=== PATIENT | female | born 1970 | race Caucasian/White ===

== ENCOUNTER 2017-10-21 11:16 | Inpatient (IN) ==
--- NOTE | 2017-10-21 11:36 | Emergency Department Note ---
Disposition Clinical Impression: Suicidal ideation, Medical clearance for psychiatric admission Disposition: Admitted As Inpatient Condition: Undetermined Referrals: Callie Doss DO [Primary Care Provider] - Forms: ED Satisfaction Letter General Adult HPI - General Chief complaint: ED Psychiatric Symptoms Stated complaint: Depression Time Seen by Provider: 10/21/17 11:32 Source: patient Limitations: no limitations - History of Present Illness Pain Scale: 8 - Related Data Home Medications Medication Instructions Recorded Confirmed Furosemide [Lasix] 20 mg PO DAILY 01/14/16 01/14/16 HYDROcodone/Acet 7.5/325 mg [[place] 1 tab PO Q6HR 01/14/16 01/14/16 7.5-325 mg] Metoprolol [Lopressor] 12.5 mg PO DAILY 01/14/16 01/14/16 Omeprazole [PriLOSEC] 20 mg PO DAILY 01/14/16 01/14/16 Potassium Chloride [K-Tab ER] 20 meq PO DAILY 01/14/16 01/14/16 Previous Rx's Medication Instructions Recorded Oseltamivir [Tamiflu] 75 mg PO BID #10 capsule 08/15/16 Promethazine [Phenergan] 25 mg PO Q6HR PRN #16 tablet 08/15/16 amLODIPine [Norvasc] 5 mg PO DAILY #10 tablet 10/29/16 Allergies Allergy/AdvReac Type Severity Reaction Status Date / Time No Known Allergies Allergy Verified 10/28/16 22:38 Past Medical History - Past Medical History Medical history: Reports: hypertension, other Surgical history: Reports: appendectomy, cholecystectomy, hysterectomy Psychiatric history: Reports: anxiety, depression 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 - Social History Smoking Status: Never smoker Smokeless Tobacco Status: No Alcohol use: Reports: occasionally Drug use: Reports: none Physical Exam - General Limitations: no limitations General appearance: alert, in no apparent distress Course Vital Signs Temperature 97.9 F 10/21/17 11:25 Pulse Rate 66 10/21/17 11:25 Respiratory Rate 18 10/21/17 11:25 Blood Pressure 155/97 10/21/17 11:25 O2 Sat by Pulse Oximetry 95 10/21/17 11:25 Temperature 97.9 F 10/21/17 11:25 Pulse Rate 66 10/21/17 11:25 Respiratory Rate 18 10/21/17 11:25 Blood Pressure 155/97 10/21/17 11:25 O2 Sat by Pulse Oximetry 95 10/21/17 11:25 Oxygen Delivery Oxygen Delivery Room Air Medical Decision Making - Lab Data Result diagrams: 10/21/17 12:15 10/21/17 13:35 Lab Results 10/21/17 10/21/17 10/21/17 Range/Units 11:23 11:23 11:23 WBC (4.3-11.1) K/mcL RBC (3.82-4.97) M/mcL Hgb (11.5-15.4) g/dL Hct (35.3-44.9) % MCV (83.0-100.0) fL MCH (28.0-33.3) pg MCHC (31.6-35.5) g/dL RDW (11.5-14.5) % Plt Count (140-400) K/mcL MPV (9.4-12.4) fL Immature Gran % (0-4) % Seg Neutrophils % % Lymphocytes % % Monocytes % % Eosinophils % % Basophils % % Neutrophils # (1.6-8.9) K/mcL Lymphocytes # (0.6-4.6) K/mcL Monocytes # (0.0-1.3) K/mcL Eosinophils # (0.0-0.6) K/mcL Basophils # (0.0-0.2) K/mcL Sodium Potassium Chloride Carbon Dioxide BUN Creatinine Est GFR ( Amer) Est GFR (Non-Af Amer) BUN/Creatinine Ratio Glucose Calculated Osmolality Calcium TSH (0.340-5.600) mcIU/mL Urine Color Yellow (Yellow) Urine Clarity Clear (Clear) Urine pH 7.0 (5.0-8.0) pH Units Ur Specific [place] 1.015 (1.010-1.025) Urine Protein Negative (Neg-Trace) mg/dL Urine Glucose (UA) Normal (Normal) mg/dL Urine Ketones Negative (Negative) mg/dL Urine Blood Negative (Negative) Urine Nitrite Negative (Negative) Urine Bilirubin Negative (Negative) Urine Urobilinogen Normal (Normal) mg/dL Ur Leukocyte Esterase Negative (Negative) Urine Test Negative (Negative) Salicylates Urine Opiates Screen Negative (Vddbyy=737) ng/mL Acetaminophen Ur Barbiturates Screen Negative (Oqdoox=857) ng/mL Ur Phencyclidine Scrn Negative (Cutoff=25) ng/mL Ur Amphetamines Screen Negative (Ycozdy=5738) ng/mL U Benzodiazepines Scrn Negative (Slfqxj=349) ng/mL Urine Cocaine Screen Negative (Cutoff= 300) ng/mL U Marijuana (THC) Screen Negative (Cutoff = 50) ng/mL Ethyl Alcohol Specimen Rejected 10/21/17 10/21/17 10/21/17 Range/Units 12:15 12:15 12:15 WBC 10.9 (4.3-11.1) K/mcL RBC 4.68 (3.82-4.97) M/mcL Hgb 13.7 (11.5-15.4) g/dL Hct 41.4 (35.3-44.9) % MCV 88.5 (83.0-100.0) fL MCH 29.3 (28.0-33.3) pg MCHC 33.1 (31.6-35.5) g/dL RDW 12.7 (11.5-14.5) % Plt Count 372 (140-400) K/mcL MPV 10.7 (9.4-12.4) fL Immature Gran % 0.3 (0-4) % Seg Neutrophils % 62.9 % Lymphocytes % 28.3 % Monocytes % 5.4 % Eosinophils % 2.5 % Basophils % 0.6 % Neutrophils # 6.8 (1.6-8.9) K/mcL Lymphocytes # 3.1 (0.6-4.6) K/mcL Monocytes # 0.6 (0.0-1.3) K/mcL Eosinophils # 0.3 (0.0-0.6) K/mcL Basophils # 0.1 (0.0-0.2) K/mcL Sodium Cancelled Potassium Cancelled Chloride Cancelled Carbon Dioxide Cancelled BUN Cancelled Creatinine Cancelled Est GFR ( Amer) Cancelled Est GFR (Non-Af Amer) Cancelled BUN/Creatinine Ratio Cancelled Glucose Cancelled Calculated Osmolality Cancelled Calcium Cancelled TSH 1.191 (0.340-5.600) mcIU/mL Urine Color (Yellow) Urine Clarity (Clear) Urine pH (5.0-8.0) pH Units Ur Specific [place] (1.010-1.025) Urine Protein (Neg-Trace) mg/dL Urine Glucose (UA) (Normal) mg/dL Urine Ketones (Negative) mg/dL Urine Blood (Negative) Urine Nitrite (Negative) Urine Bilirubin (Negative) Urine Urobilinogen (Normal) mg/dL Ur Leukocyte Esterase (Negative) Urine Test (Negative) Salicylates Cancelled Urine Opiates Screen (Qxwwta=853) ng/mL Acetaminophen Cancelled Ur Barbiturates Screen (Aastkb=319) ng/mL Ur Phencyclidine Scrn (Cutoff=25) ng/mL Ur Amphetamines Screen (Mlbami=0688) ng/mL U Benzodiazepines Scrn (Bvpaiv=823) ng/mL Urine Cocaine Screen (Cutoff= 300) ng/mL U Marijuana (THC) Screen (Cutoff = 50) ng/mL Ethyl Alcohol Cancelled Specimen Rejected Hemolyzed 10/21/17 Range/Units 13:35 WBC (4.3-11.1) K/mcL RBC (3.82-4.97) M/mcL Hgb (11.5-15.4) g/dL Hct (35.3-44.9) % MCV (83.0-100.0) fL MCH (28.0-33.3) pg MCHC (31.6-35.5) g/dL RDW (11.5-14.5) % Plt Count (140-400) K/mcL MPV (9.4-12.4) fL Immature Gran % (0-4) % Seg Neutrophils % % Lymphocytes % % Monocytes % % Eosinophils % % Basophils % % Neutrophils # (1.6-8.9) K/mcL Lymphocytes # (0.6-4.6) K/mcL Monocytes # (0.0-1.3) K/mcL Eosinophils # (0.0-0.6) K/mcL Basophils # (0.0-0.2) K/mcL Sodium 139 Potassium 3.5 Chloride 104 Carbon Dioxide 26 BUN 14 Creatinine 0.76 Est GFR ( Amer) > 60 Est GFR (Non-Af Amer) > 60 BUN/Creatinine Ratio 18 Glucose 164 H Calculated Osmolality 292 Calcium 8.8 TSH (0.340-5.600) mcIU/mL Urine Color (Yellow) Urine Clarity (Clear) Urine pH (5.0-8.0) pH Units Ur Specific [place] (1.010-1.025) Urine Protein (Neg-Trace) mg/dL Urine Glucose (UA) (Normal) mg/dL Urine Ketones (Negative) mg/dL Urine Blood (Negative) Urine Nitrite (Negative) Urine Bilirubin (Negative) Urine Urobilinogen (Normal) mg/dL Ur Leukocyte Esterase (Negative) Urine Test (Negative) Salicylates 2.8 L Urine Opiates Screen (Robrpn=247) ng/mL Acetaminophen < 10 L Ur Barbiturates Screen (Qaijct=991) ng/mL Ur Phencyclidine Scrn (Cutoff=25) ng/mL Ur Amphetamines Screen (Ctcnji=4285) ng/mL U Benzodiazepines Scrn (Jwaeet=335) ng/mL Urine Cocaine Screen (Cutoff= 300) ng/mL U Marijuana (THC) Screen (Cutoff = 50) ng/mL Ethyl Alcohol < 10 Specimen Rejected Critical Care Time Critical Care Time: No Attestation Statement - Attestation Attestation: I examined this patient and my medical decision-making was reviewed with the Resident Physician. I agree with the documented findings, disposition and treatment plan as described except to the extent set forth below. Patient to ED with suicidal thoughts planning to hang herself. History of depression. Exam nonfocal. Plan. Medical clearance and evaluation by 1A. Admitted to psychiatry.
[2017-10-21 11:46] LABS: Bilirubin,Urine Negative (Negative); Blood,Urine Negative (Negative); Clarity,Urine Clear (Clear); Color,Urine Yellow (Yellow); Glucose,Urine (UA) Normal (Normal); Ketones,Urine Negative (Negative); Leukocyte Esterase,Urine Negative (Negative); Nitrite,Urine Negative (Negative); Protein,Urine Negative (Neg-Trace); Specific Gravity,Urine 1.015 (1.010-1.025); Urobilinogen,Urine Normal (Normal)
--- NOTE | 2017-10-21 12:17 | Emergency Department Note ---
Disposition Clinical Impression: Suicidal ideation, Medical clearance for psychiatric admission Disposition: Admitted As Inpatient Condition: Undetermined Referrals: Callie Doss DO [Primary Care Provider] - Forms: ED Satisfaction Letter Time of Disposition: 16:03 Psych HPI - General Chief Complaint: ED Psychiatric Symptoms Stated Complaint: Depression Time Seen by Provider: 10/21/17 11:32 Source: patient, EMS Mode of arrival: EMS Limitations: no limitations Nursing Notes Reviewed: Yes Vital Signs Reviewed: Yes - History of Present Illness HPI Narrative: 47-year-old female arrives to the emergency department after the patient was noted to be suicidal. The patient called her PCP as well as integrative services to inform them that she was feeling suicidal and wanted to hang herself. The patient denies any previous suicidal attempts. She denies any other complaints at this time other than a small amount of swelling in the right side of her neck. The patient states this is tender but she has a PCP that she sees on a regular basis. Patient denies any other complaints and is resting comfortably room but is very tearful and anxious. She has a plan but did not attempt to hurt herself today. - Related Data Home Medications Medication Instructions Recorded Confirmed Furosemide [Lasix] 20 mg PO DAILY 01/14/16 01/14/16 HYDROcodone/Acet 7.5/325 mg [[place] 1 tab PO Q6HR 01/14/16 01/14/16 7.5-325 mg] Metoprolol [Lopressor] 12.5 mg PO DAILY 01/14/16 01/14/16 Omeprazole [PriLOSEC] 20 mg PO DAILY 01/14/16 01/14/16 Potassium Chloride [K-Tab ER] 20 meq PO DAILY 01/14/16 01/14/16 Previous Rx's Medication Instructions Recorded Oseltamivir [Tamiflu] 75 mg PO BID #10 capsule 08/15/16 Promethazine [Phenergan] 25 mg PO Q6HR PRN #16 tablet 08/15/16 amLODIPine [Norvasc] 5 mg PO DAILY #10 tablet 10/29/16 Allergies Allergy/AdvReac Type Severity Reaction Status Date / Time No Known Allergies Allergy Verified 10/28/16 22:38 All systems ED: reviewed and negative except as stated. Constitutional: Denies: fever, chills, weakness ENT ED: Reports: throat pain. Denies: congestion Cardiovascular: Denies: chest pain Respiratory: Denies: dyspnea Gastrointestinal: Denies: abdominal pain, nausea, vomiting, diarrhea Genitourinary: Denies: urgency, dysuria Musculoskeletal: Denies: back pain, neck pain Integumentary: Denies: rash Neurological: Denies: headache, weakness Psychiatric: Reports: anxiety, depression, suicidal thoughts. Denies: homicidal thoughts, auditory hallucinations, visual hallucinations Past Medical History - Past Medical History Attestation: Yes The following information was validated with the patient. 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 - Social History Smoking Status: Never smoker Smokeless Tobacco Status: No Alcohol use: Reports: occasionally Drug use: Reports: none Physical Exam - General Limitations: no limitations General appearance: alert, in no apparent distress - Head Head exam: atraumatic, normocephalic, normal inspection - Eye Eye exam: Present: normal appearance, PERRL, EOMI - ENT ENT exam: normal exam, normal oropharynx, mucous membranes moist - Neck Neck exam: Present: normal inspection, full ROM, trachea midline, tenderness ( With thyroid nodule on right neck.) - Chest Chest inspection: Present: normal inspection, symmetric chest wall rise - Respiratory Respiratory exam: Present: normal lung sounds bilaterally - Cardiovascular Cardiovascular exam: Present: regular rate, normal rhythm, normal heart sounds - Abdominal Exam Abdominal exam: Present: soft, Non-Tender. Absent: tenderness, distention, guarding, rebound, rigidity - Extremities Exam Extremities exam: Present: normal inspection, full ROM. Absent: tenderness, pedal edema - Back Exam Back exam: Present: normal inspection, full ROM. Absent: tenderness - Neurological Exam Neurological exam: Present: alert, oriented X3, CN II-XII intact - Expanded Neurological Exam Patient oriented to: Present: person, place, time Coma Scale Eye Opening: Spontaneous Coma Scale Motor Response: Obeys Commands Coma Scale Verbal Response: Oriented Coma Scale Total: 15 - Psychiatric Psychiatric exam: Present: depressed, anxious, suicidal ideation. Absent: homicidal ideation - Skin Skin exam: Present: warm, dry, intact, normal color Course - Reevaluation(s) Reevaluation #1: 1A was consulted called at this time. Time: 15:09 Vital Signs Temperature 97.9 F 10/21/17 11:25 Pulse Rate 66 10/21/17 11:25 Respiratory Rate 18 10/21/17 11:25 Blood Pressure 155/97 10/21/17 11:25 O2 Sat by Pulse Oximetry 95 10/21/17 11:25 Temperature 97.9 F 10/21/17 11:25 Pulse Rate 66 10/21/17 11:25 Respiratory Rate 18 10/21/17 11:25 Blood Pressure 155/97 10/21/17 11:25 O2 Sat by Pulse Oximetry 95 10/21/17 11:25 Oxygen Delivery Oxygen Delivery Room Air Psych - MDM Narrative Medical decision making narrative: After one a evaluated patient, they feel as though the need to admit the patient to the psychiatric unit for further workup and care. Accepted by Dr. Vences. - Lab Data Result diagrams: 10/21/17 12:15 10/21/17 13:35 Lab Results 10/21/17 10/21/17 10/21/17 Range/Units 11:23 11:23 11:23 WBC (4.3-11.1) K/mcL RBC (3.82-4.97) M/mcL Hgb (11.5-15.4) g/dL Hct (35.3-44.9) % MCV (83.0-100.0) fL MCH (28.0-33.3) pg MCHC (31.6-35.5) g/dL RDW (11.5-14.5) % Plt Count (140-400) K/mcL MPV (9.4-12.4) fL Immature Gran % (0-4) % Seg Neutrophils % % Lymphocytes % % Monocytes % % Eosinophils % % Basophils % % Neutrophils # (1.6-8.9) K/mcL Lymphocytes # (0.6-4.6) K/mcL Monocytes # (0.0-1.3) K/mcL Eosinophils # (0.0-0.6) K/mcL Basophils # (0.0-0.2) K/mcL Sodium Potassium Chloride Carbon Dioxide BUN Creatinine Est GFR ( Amer) Est GFR (Non-Af Amer) BUN/Creatinine Ratio Glucose Calculated Osmolality Calcium TSH (0.340-5.600) mcIU/mL Urine Color Yellow (Yellow) Urine Clarity Clear (Clear) Urine pH 7.0 (5.0-8.0) pH Units Ur Specific [place] 1.015 (1.010-1.025) Urine Protein Negative (Neg-Trace) mg/dL Urine Glucose (UA) Normal (Normal) mg/dL Urine Ketones Negative (Negative) mg/dL Urine Blood Negative (Negative) Urine Nitrite Negative (Negative) Urine Bilirubin Negative (Negative) Urine Urobilinogen Normal (Normal) mg/dL Ur Leukocyte Esterase Negative (Negative) Urine Test Negative (Negative) Salicylates Urine Opiates Screen Negative (Btiyed=901) ng/mL Acetaminophen Ur Barbiturates Screen Negative (Ipofwm=070) ng/mL Ur Phencyclidine Scrn Negative (Cutoff=25) ng/mL Ur Amphetamines Screen Negative (Iljegk=6120) ng/mL U Benzodiazepines Scrn Negative (Jjldve=082) ng/mL Urine Cocaine Screen Negative (Cutoff= 300) ng/mL U Marijuana (THC) Screen Negative (Cutoff = 50) ng/mL Ethyl Alcohol Specimen Rejected 10/21/17 10/21/17 10/21/17 Range/Units 12:15 12:15 12:15 WBC 10.9 (4.3-11.1) K/mcL RBC 4.68 (3.82-4.97) M/mcL Hgb 13.7 (11.5-15.4) g/dL Hct 41.4 (35.3-44.9) % MCV 88.5 (83.0-100.0) fL MCH 29.3 (28.0-33.3) pg MCHC 33.1 (31.6-35.5) g/dL RDW 12.7 (11.5-14.5) % Plt Count 372 (140-400) K/mcL MPV 10.7 (9.4-12.4) fL Immature Gran % 0.3 (0-4) % Seg Neutrophils % 62.9 % Lymphocytes % 28.3 % Monocytes % 5.4 % Eosinophils % 2.5 % Basophils % 0.6 % Neutrophils # 6.8 (1.6-8.9) K/mcL Lymphocytes # 3.1 (0.6-4.6) K/mcL Monocytes # 0.6 (0.0-1.3) K/mcL Eosinophils # 0.3 (0.0-0.6) K/mcL Basophils # 0.1 (0.0-0.2) K/mcL Sodium Cancelled Potassium Cancelled Chloride Cancelled Carbon Dioxide Cancelled BUN Cancelled Creatinine Cancelled Est GFR ( Amer) Cancelled Est GFR (Non-Af Amer) Cancelled BUN/Creatinine Ratio Cancelled Glucose Cancelled Calculated Osmolality Cancelled Calcium Cancelled TSH 1.191 (0.340-5.600) mcIU/mL Urine Color (Yellow) Urine Clarity (Clear) Urine pH (5.0-8.0) pH Units Ur Specific [place] (1.010-1.025) Urine Protein (Neg-Trace) mg/dL Urine Glucose (UA) (Normal) mg/dL Urine Ketones (Negative) mg/dL Urine Blood (Negative) Urine Nitrite (Negative) Urine Bilirubin (Negative) Urine Urobilinogen (Normal) mg/dL Ur Leukocyte Esterase (Negative) Urine Test (Negative) Salicylates Cancelled Urine Opiates Screen (Mbznkl=976) ng/mL Acetaminophen Cancelled Ur Barbiturates Screen (Zwxvvt=087) ng/mL Ur Phencyclidine Scrn (Cutoff=25) ng/mL Ur Amphetamines Screen (Npkmpm=6442) ng/mL U Benzodiazepines Scrn (Tichos=157) ng/mL Urine Cocaine Screen (Cutoff= 300) ng/mL U Marijuana (THC) Screen (Cutoff = 50) ng/mL Ethyl Alcohol Cancelled Specimen Rejected Hemolyzed 10/21/17 Range/Units 13:35 WBC (4.3-11.1) K/mcL RBC (3.82-4.97) M/mcL Hgb (11.5-15.4) g/dL Hct (35.3-44.9) % MCV (83.0-100.0) fL MCH (28.0-33.3) pg MCHC (31.6-35.5) g/dL RDW (11.5-14.5) % Plt Count (140-400) K/mcL MPV (9.4-12.4) fL Immature Gran % (0-4) % Seg Neutrophils % % Lymphocytes % % Monocytes % % Eosinophils % % Basophils % % Neutrophils # (1.6-8.9) K/mcL Lymphocytes # (0.6-4.6) K/mcL Monocytes # (0.0-1.3) K/mcL Eosinophils # (0.0-0.6) K/mcL Basophils # (0.0-0.2) K/mcL Sodium 139 Potassium 3.5 Chloride 104 Carbon Dioxide 26 BUN 14 Creatinine 0.76 Est GFR ( Amer) > 60 Est GFR (Non-Af Amer) > 60 BUN/Creatinine Ratio 18 Glucose 164 H Calculated Osmolality 292 Calcium 8.8 TSH (0.340-5.600) mcIU/mL Urine Color (Yellow) Urine Clarity (Clear) Urine pH (5.0-8.0) pH Units Ur Specific [place] (1.010-1.025) Urine Protein (Neg-Trace) mg/dL Urine Glucose (UA) (Normal) mg/dL Urine Ketones (Negative) mg/dL Urine Blood (Negative) Urine Nitrite (Negative) Urine Bilirubin (Negative) Urine Urobilinogen (Normal) mg/dL Ur Leukocyte Esterase (Negative) Urine Test (Negative) Salicylates 2.8 L Urine Opiates Screen (Elwexj=191) ng/mL Acetaminophen < 10 L Ur Barbiturates Screen (Jhxygb=835) ng/mL Ur Phencyclidine Scrn (Cutoff=25) ng/mL Ur Amphetamines Screen (Hocrdg=7811) ng/mL U Benzodiazepines Scrn (Qivxgn=529) ng/mL Urine Cocaine Screen (Cutoff= 300) ng/mL U Marijuana (THC) Screen (Cutoff = 50) ng/mL Ethyl Alcohol < 10 Specimen Rejected Psychiatric Medical Clearance - Medical Clearance Checklist Medical History: Chest pain (Acute) HTN (hypertension) (Chronic) GERD (gastroesophageal reflux disease) (Chronic) Hyperglycemia (Acute) DVT prophylaxis (Acute) Anxiety attack (Inactive) Bacterial conjunctivitis (Inactive) Chest pain of unknown etiology (Inactive) Edema of lower extremity (Inactive) Hypertensive urgency (Inactive) Influenza (Inactive) Migraine (Inactive) No Social History Section defined Current Vitals: Last Vital Signs Temp 97.9 F 10/21/17 11:25 Pulse 66 10/21/17 11:25 Resp 18 10/21/17 11:25 BP 155/97 10/21/17 11:25 Pulse Ox 95 10/21/17 11:25 Psychiatric Lab Panel: Drug Levels and Toxicity 10/21/17 10/21/17 10/21/17 11:23 12:15 13:35 Urine Opiates Screen Negative Acetaminophen Cancelled < 10 L Ur Barbiturates Screen Negative Ur Phencyclidine Scrn Negative Ur Amphetamines Screen Negative U Benzodiazepines Scrn Negative Urine Cocaine Screen Negative U Marijuana (THC) Screen Negative Ethyl Alcohol Cancelled < 10 Abnormal Labs: Abnormal lab results Glucose 164 mg/dL (70-105) H 10/21/17 13:35 Salicylates 2.8 mg/dL (15.0-30.0) L 10/21/17 13:35 Acetaminophen < 10 mcg/mL (10-20) L 10/21/17 13:35 Statement of Medical Clearance: I have evaluated the patient, reviewed diagnostic information, and certify that the patient's medical condition is sufficiently stable that transfer to the psychiatric unit does not pose a significant risk of deterioration.
[2017-10-21 12:30] LABS: Basophils # 0.1 K/mcL (0.0-0.2); Basophils % 0.6 %; Eosinophils # 0.3 K/mcL (0.0-0.6); Eosinophils % 2.5 %; Hematocrit 41.4 % (35.3-44.9); Hemoglobin 13.7 g/dL (11.5-15.4); Immature Granulocytes % 0.3 % (0-4); Lymphocytes # 3.1 K/mcL (0.6-4.6); Lymphocytes % 28.3 %; Mean Corpuscular HGB Conc 33.1 g/dL (31.6-35.5); Mean Corpuscular Hemoglobin 29.3 pg (28.0-33.3); Mean Corpuscular Volume 88.5 fL (83.0-100.0); Mean Platelet Volume 10.7 fL (9.4-12.4); Monocytes # 0.6 K/mcL (0.0-1.3); Monocytes % 5.4 %; Neutrophils # 6.8 K/mcL (1.6-8.9); Platelet Count 372 K/mcL (140-400); Red Blood Count 4.68 M/mcL (3.82-4.97); Red Cell Distribution Width 12.7 % (11.5-14.5); Segmented Neutrophils % 62.9 %
[2017-10-21 13:41] LABS: Amphetamine Screen,Urine Negative ng/mL (Cutoff=1000); Barbiturate Screen,Urine Negative ng/mL (Cutoff=200); Benzodiazepines Screen,Urine Negative ng/mL (Cutoff=200); Cannabinoid Screen,Urine Negative ng/mL (Cutoff = 50); Cocaine Screen,Urine Negative ng/mL (Cutoff= 300); Opiate Screen,Urine Negative ng/mL (Cutoff=300); Phencyclidine Screen,Urine Negative ng/mL (Cutoff=25)
[2017-10-21 14:16] LABS: BUN/Creatinine Ratio 18 (6-26); Blood Urea Nitrogen 14 mg/dL (6-20); Calcium 8.8 mg/dL (8.6-10.3); Carbon Dioxide 26 mEq/L (23-29); Chloride 104 mEq/L (98-107); Glucose 164 mg/dL (70-105); Osmolality,Calculated 292 (280-300); Potassium 3.5 mEq/L (3.5-5.1); Sodium 139 mEq/L (136-145); eGFR For African Americans > 60 (> 60); eGFR For Non-African Americans > 60 (> 60)
[2017-10-21 14:40] LABS: Acetaminophen < 10 mcg/mL (10-20); Ethanol < 10 mg/dL (Less than 10); Salicylate 2.8 mg/dL (15.0-30.0)
[2017-10-21] MEDS ORDERED: *HR* LORazepam 1 MG TABLET PO PRN (16:40)
[2017-10-21] MEDS ORDERED: Haloperidol Lactate 5 MG/ML VIAL IM PRN (16:40)
[2017-10-21] MEDS ORDERED: Mag Hydrox/Al Hydrox/Simeth 30 ML UDC PO PRN (16:40)
[2017-10-21] MEDS ORDERED: *HR* LORazepam 2 MG/ML VIAL IM PRN (16:40)
[2017-10-21] MEDS: SUMAtriptan succinate 50 MG TABLET PO PRN (19:14)
[2017-10-21] MEDS: traZODone 50 MG TABLET PO PRN (22:06)
[2017-10-21] MEDS: hydrOXYzine pamoate 25 MG CAPSULE PO PRN (22:06)
[2017-10-21] MEDS ORDERED: traZODone 50 MG TABLET PO ONE (23:50)
[2017-10-22] MEDS: Ondansetron ODT 4 MG TAB.RAPDIS PO SCH (08:37)
[2017-10-22] MEDS: SUMAtriptan succinate 50 MG TABLET PO PRN (10:39)
[2017-10-22] MEDS: Acetaminophen 325 MG TABLET PO PRN (14:16)
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
[2017-10-22] MEDS: hydrOXYzine pamoate 25 MG CAPSULE PO PRN (20:54)
[2017-10-22] MEDS: traZODone 50 MG TABLET PO PRN (22:13)
[2017-10-23] MEDS ORDERED: Venlafaxine XR (24 HR) 75 MG CAP.ER.24H PO SCH (09:00)
[2017-10-23] MEDS: Ondansetron ODT 4 MG TAB.RAPDIS PO SCH (09:04)
[2017-10-23] MEDS: Acetaminophen 325 MG TABLET PO PRN ×2 (09:32→21:18)
--- NOTE | 2017-10-23 14:47 | Psychiatry Progress Note ---
Date of Encounter: 10/23/17 Time of Encounter: 14:30 Subjective Interval history: The patient has continued to have depressive symptoms. She has lack of reactivity she has psychomotor retardation she has had a headache that is continued on. She was seen reading in bed but has reported difficulty with concentration is unable to remember sheets. The patient has difficulty with recurring guilt thoughts come through her head she is denying visual or auditory hallucinations she is denying first rank schneiderian symptoms nonetheless she feels okay about the past. She continues to have recurrent suicidal thoughts. There are no plans to kill herself on the unit but previously she has considered hanging. Patient has pain from [place] on the left side of the head. She has not respond to sumatriptan The patient has ongoing nausea. She is trying Zofran but usually takes at home every day. She also takes omeprazole 3 times a day after meals to help with her eating. The patient has not responded to sumatriptan and her primary care physician is 4. The patient would like to continue on the venlafaxine she has been able to tolerate it. I told her we can increase to 150 mg per day. The patient notes no improvement whatsoever in this interval. She still has difficulty with thinking and concentration. The patient has had low blood pressure and affect does not appear to need antihypertensive so the 3 antihypertensives been discontinued. The patient has a limited range of motion of the right upper extremity. This resulted from a fall from a horse where she broke both arms Review of Systems Musculoskeletal: Reports: joint pain Neurological: Reports: headache, memory loss Psychiatric: Reports: depression, abnormal sleep pattern, suicidal ideation, anhedonia, panic attacks Results - Vital Signs Vital Signs: Temp Pulse Resp BP Pulse Ox 98.6 F 75 16 88/67 96 10/23/17 08:58 10/23/17 08:58 10/23/17 08:58 10/23/17 08:58 10/21/17 19:47 Assessment and Plan (1) Suicidal ideation Current visit: Yes Status: Acute Plan: Continue hospitalization, Encourage participation in unit milieu, Secure weapons Risks, benefits, side effects, alternatives discussed w/pt: Yes Patient agreeable to treatment: Yes (2) Major depressive disorder, recurrent severe without psychotic features Current visit: Yes Status: Acute Plan: Continue hospitalization, Close observation, Encourage participation in unit milieu, Monitor sleep Risks, benefits, side effects, alternatives discussed w/pt: Yes Patient agreeable to treatment: Yes (3) Suicidal behavior without attempted self-injury Current visit: Yes Status: Acute Plan: Continue hospitalization, Group Therapy Risks, benefits, side effects, alternatives discussed w/pt: Yes Patient agreeable to treatment: Yes (4) HTN (hypertension) Current visit: No Status: Resolved Plan: Continue hospitalization Risks, benefits, side effects, alternatives discussed w/pt: Yes Patient agreeable to treatment: Yes Qualifiers: Hypertension type: essential hypertension Qualified Code(s): I10 - Essential (primary) hypertension Consult Discharge Plan - Plan Referrals: NONE,PCP [Primary Care Provider] - Psychiatry Exam - Constitutional Vitals: Temp Pulse Resp BP Pulse Ox 98.6 F 75 16 88/67 96 10/23/17 08:58 10/23/17 08:58 10/23/17 08:58 10/23/17 08:58 10/21/17 19:47 General appearance: age & developmentally appropriate, unkempt - Musculoskeletal Gait: slow Station: slouched Strength & Tone: mild weakness - Psychiatric Patient Orientation: Yes Person, Yes Time, Yes Place, Yes Circumstance Level of alertness: Alert Mood Description: Depressed Affect description: constricted, dysphoric Speech Volume: Normal Speech pattern: normal rate, limited Language & Vocabulary: consistent with education Thought Process: Intact, Logical Thought Content: Yes Suicidal ideation, Yes Preoccupation, Yes Guilt Perceptual Disturbances: No Auditory hallucinations, No Visual hallucinations Attention Span Ability: Capable of Sustained Attention Memory Description: Grossly Intact Patient Reliability: Reliable Historian Fund of knowledge: Yes average Intelligence Estimate: Average Judgment: Limited Insight: Minimal
[2017-10-23] MEDS: Acetaminophen/Butalbital/CaffeineTABLET PO PRN (18:08)
[2017-10-23] MEDS: traZODone 50 MG TABLET PO PRN (21:18)
[2017-10-23] MEDS: hydrOXYzine pamoate 25 MG CAPSULE PO PRN (21:18)
[2017-10-23] MEDS: Ondansetron ODT 4 MG TAB.RAPDIS SL PRN (21:19)
[2017-10-24] MEDS: SUMAtriptan succinate 50 MG TABLET PO PRN (09:22)
[2017-10-24] MEDS: Venlafaxine XR (24 HR) 150 MG CAP.ER.24H PO SCH (09:23)
[2017-10-24] MEDS: MOM Conc 10 ML UD.LIQ PO PRN (09:54)
[2017-10-24] MEDS: Acetaminophen 325 MG TABLET PO PRN (10:50)
[2017-10-24] MEDS: hydrOXYzine pamoate 25 MG CAPSULE PO PRN (13:29)
--- NOTE | 2017-10-24 14:28 | Psychiatry Progress Note ---
Date of Encounter: 10/24/17 Time of Encounter: 14:00 Subjective Interval history: Patient seen and discussed by a multidisciplinary treatment team. There were no reported behavioral issues overnight. BP noted to be trending up. Patient was calm, cooperative and well related. She is showing some improvement in her symptoms but remains isolative with suboptimal selfcare. She is more engaging with staff and has been was seen iin group session. She is still endorsing depressive symptoms with passive suicidal thoughts but is a little more hopeful. Patient is compliant with her medications and denied any noted side effects. On review of symptoms, she denied other mood/psychotic symptoms including AH/VH/HI/. She reported worsening anxiety which could be due her propranol being held. This will be restarted once BP remains consistently normal. Review of Systems Constitutional: Denies: fever, chills, weakness, weight change Eyes: Denies: eye pain, vision change Ears, Nose, Throat: Denies: ear pain, throat pain, dental pain, hearing loss, congestion Cardiovascular: Denies: chest pain, palpitations, dyspnea on exertion Respiratory: Denies: cough, dyspnea, wheezes Gastrointestinal: Denies: abdominal pain, nausea, vomiting, diarrhea, constipation Musculoskeletal: Denies: joint swelling, joint pain Neurological: Denies: headache, weakness, numbness, memory loss Psychiatric: Reports: depression, abnormal sleep pattern, suicidal ideation, anhedonia, panic attacks Results - Vital Signs Vital Signs: Temp Pulse Resp BP Pulse Ox 98 F 77 16 106/68 96 10/24/17 09:00 10/24/17 09:00 10/24/17 09:00 10/24/17 09:00 10/21/17 19:47 Assessment and Plan (1) Suicidal ideation Current visit: Yes Status: Acute Risks, benefits, side effects, alternatives discussed w/pt: Yes Patient agreeable to treatment: Yes (2) Major depressive disorder, recurrent severe without psychotic features Current visit: Yes Status: Acute Risks, benefits, side effects, alternatives discussed w/pt: Yes Patient agreeable to treatment: Yes Consult Discharge Plan - Plan Referrals: NONE,PCP [Primary Care Provider] - Psychiatry Exam - Constitutional Vitals: Temp Pulse Resp BP Pulse Ox 98 F 77 16 106/68 96 10/24/17 09:00 10/24/17 09:00 10/24/17 09:00 10/24/17 09:00 10/21/17 19:47 General appearance: age & developmentally appropriate - Musculoskeletal Gait: normal - Psychiatric Patient Orientation: Yes Person, Yes Place, Yes Circumstance Level of alertness: Alert Behavior: cooperative, anxious Psychomotor activity: Normal Eye Contact: Maintains Eye Contact Mood Description: Depressed Affect description: congruent with mood Speech Volume: Soft/Quiet Speech pattern: normal rate, normal rhythm, normal tone Language & Vocabulary: consistent with education Thought Process: Logical, Goal Oriented Thought Content: Yes Suicidal ideation Perceptual Disturbances: No Auditory hallucinations, No Visual hallucinations Attention Span Ability: Capable of Focused Attention Memory Description: Grossly Intact Patient Reliability: Reliable Historian
[2017-10-25] MEDS: Acetaminophen 325 MG TABLET PO PRN (00:06)
[2017-10-25] MEDS: traZODone 50 MG TABLET PO PRN ×2 (01:18→21:13)
[2017-10-25] MEDS: Acetaminophen/Butalbital/CaffeineTABLET PO PRN ×2 (01:25→21:13)
[2017-10-25] MEDS: MOM Conc 10 ML UD.LIQ PO PRN (01:25)
[2017-10-25] MEDS: Venlafaxine XR (24 HR) 150 MG CAP.ER.24H PO SCH (09:17)
--- NOTE | 2017-10-25 11:26 | Psychiatry Progress Note ---
Date of Encounter: 10/25/17 Time of Encounter: 10:59 Subjective Interval history: Patient seen and discussed by a multidisciplinary treatment team. There were no reported behavioral issues overnight. Patient was calm, cooperative and well related. She reported feeling OK and ready to be discharge. Patient remains isolated with severe psychomotor retardation and blunt affect. Patient became tearful when talking about her boyfriend breaking up with her a week prior to her admission. She stated she wants to be at peace like the mother who in March for all the pain to go away. She was also noted with a suboptimal self care. She is compliant with her medications and denied any side effects. She denied problems with her sleep/appetite. On review of symptoms, she denied other mood/psychotic symptom including AH/VH/HI.Patient remains a risk to self due to passive suicidal thoughts and will continue to benefit from ongoing hospitalization and present time. She agreed to add Abilify to her current regimen to help optimize stabilization. Risk, side effects and benefits of Abilify discussed with patient and she verbalized adequate understanding. Review of Systems Constitutional: Denies: fever, chills, weakness, weight change Eyes: Denies: eye pain, vision change Ears, Nose, Throat: Denies: ear pain, throat pain, dental pain, hearing loss, congestion Cardiovascular: Denies: chest pain, palpitations, dyspnea on exertion Respiratory: Denies: cough, dyspnea, wheezes Musculoskeletal: Denies: joint swelling, joint pain Neurological: Denies: headache, weakness, numbness, memory loss Psychiatric: Reports: depression, abnormal sleep pattern, suicidal ideation, anhedonia, panic attacks Results - Vital Signs Vital Signs: Temp Pulse Resp BP Pulse Ox 97.0 F L 84 16 107/76 96 10/25/17 09:00 10/25/17 09:00 10/25/17 09:00 10/25/17 09:00 10/21/17 19:47 Assessment and Plan (1) Suicidal ideation Current visit: Yes Status: Acute Risks, benefits, side effects, alternatives discussed w/pt: Yes Patient agreeable to treatment: Yes (2) Major depressive disorder, recurrent severe without psychotic features Current visit: Yes Status: Acute Risks, benefits, side effects, alternatives discussed w/pt: Yes Patient agreeable to treatment: Yes Consult Discharge Plan - Plan Referrals: NONE,PCP [Primary Care Provider] - Psychiatry Exam - Constitutional Vitals: Temp Pulse Resp BP Pulse Ox 97.0 F L 84 16 107/76 96 10/25/17 09:00 10/25/17 09:00 10/25/17 09:00 10/25/17 09:00 10/21/17 19:47 General appearance: disheveled, other - Musculoskeletal Gait: slow - Psychiatric Patient Orientation: Yes Person, Yes Place Level of alertness: Alert Behavior: calm, cooperative, tearful Psychomotor activity: Slowed Eye Contact: Maintains Eye Contact Mood Description: Depressed Affect description: labile, tearful Speech Volume: Soft/Quiet Speech pattern: clear, coherent, slowed Language & Vocabulary: consistent with education Thought Process: Logical, Goal Oriented Thought Content: Yes Suicidal ideation Perceptual Disturbances: No Auditory hallucinations, No Visual hallucinations Attention Span Ability: Capable of Focused Attention Memory Description: Grossly Intact Patient Reliability: Reliable Historian Fund of knowledge: Yes average Intelligence Estimate: Average Judgment: Poor Insight: Minimal
[2017-10-25] MEDS: hydrOXYzine pamoate 25 MG CAPSULE PO PRN ×2 (11:34→13:03)
[2017-10-25] MEDS: ARIPiprazole 5 MG TABLET PO SCH (21:13)
[2017-10-26] MEDS: Venlafaxine XR (24 HR) 150 MG CAP.ER.24H PO SCH (09:14)
[2017-10-26] MEDS: Acetaminophen/Butalbital/CaffeineTABLET PO PRN ×2 (09:15→19:30)
--- NOTE | 2017-10-26 10:45 | Psychiatry Progress Note ---
Date of Encounter: 10/26/17 Time of Encounter: 10:20 Subjective Interval history: Ms. Adkins is 47 year old WF seen today , chart reviewed and case d/w treatment team. She was started on abilify yesterday and is tolerating well, her antidepressant was changed from zoloft to effexor. she at present as per team remains withdrawn, isolative and depress. as per her she has been starting to learn coping skills, she has minimal eye contact, slow to respond , increase latency of speech. she still has negative thoughts but not as much as before. states thoughts are to end it all. states i am not visualizing my self hanging and in my dreams i see my self crying in front of my mom and telling her i am not doing well, still has suicidal thoughts off and on . states when my mother i was holding her hand and i cried not because she but because i am not in peace like she is. resticted affect and agrees thoughts come to her head but she tries to think something else. patient needs inpatient as significant psychomotor retardation, she has unkempt hair, she is depress and passive suicidal thoughts still present. will increase effexor to 225 mg , patient agreed with the plan. Review of Systems Psychiatric: Reports: depression, abnormal sleep pattern, suicidal ideation, anhedonia, panic attacks Results - Vital Signs Vital Signs: Temp Pulse Resp BP Pulse Ox 97.4 F L 81 16 108/76 96 10/26/17 09:00 10/26/17 09:00 10/26/17 09:00 10/26/17 09:00 10/21/17 19:47 Assessment and Plan (1) Suicidal ideation Current visit: Yes Status: Acute Plan: Continue hospitalization, Close observation, Suicide Precautions per unit protocol, Encourage participation in unit milieu, Group Therapy, Monitor sleep, Monitor appetite, Secure weapons, Family/Supportive other meeting Risks, benefits, side effects, alternatives discussed w/pt: Yes Patient agreeable to treatment: Yes (2) Major depressive disorder, recurrent severe without psychotic features Current visit: Yes Status: Acute Plan: Continue hospitalization, Close observation, Suicide Precautions per unit protocol, Encourage participation in unit milieu, Group Therapy, Monitor sleep, Monitor appetite Additional Plan: will increase effexor to 225 mg Risks, benefits, side effects, alternatives discussed w/pt: Yes Patient agreeable to treatment: Yes Consult Discharge Plan - Plan Referrals: NONE,PCP [Primary Care Provider] - Psychiatry Exam - Constitutional Vitals: Temp Pulse Resp BP Pulse Ox 97.4 F L 81 16 108/76 96 10/26/17 09:00 10/26/17 09:00 10/26/17 09:00 10/26/17 09:00 10/21/17 19:47 General appearance: age & developmentally appropriate - Musculoskeletal Gait: slow Station: other Strength & Tone: normal for patient - Psychiatric Patient Orientation: Yes Person, Yes Time, Yes Place Level of alertness: Alert Behavior: cooperative, withdrawn Psychomotor activity: Slowed Eye Contact: Minimal Contact Mood Description: Depressed Affect description: constricted, dysphoric Speech Volume: Soft/Quiet Speech pattern: slowed Language & Vocabulary: consistent with education Thought Process: Slowed Thinking Thought Content: Yes Suicidal ideation Perceptual Disturbances: No Auditory hallucinations, No Visual hallucinations Attention Span Ability: Unable to Sustain Attention Memory Description: Grossly Intact Patient Reliability: Reliable Historian Fund of knowledge: Yes abstraction ability, Yes aware of current events Intelligence Estimate: Average Judgment: Limited Insight: Partial
[2017-10-26] MEDS: Venlafaxine XR (24 HR) 75 MG CAP.ER.24H PO SCH (11:56)
[2017-10-26] MEDS: hydrOXYzine pamoate 25 MG CAPSULE PO PRN ×2 (14:54→21:48)
[2017-10-26] MEDS: ARIPiprazole 5 MG TABLET PO SCH (21:18)
[2017-10-26] MEDS: traZODone 50 MG TABLET PO PRN (21:48)
[2017-10-27] MEDS: Venlafaxine XR (24 HR) 150 MG CAP.ER.24H PO SCH (09:20)
[2017-10-27] MEDS: Venlafaxine XR (24 HR) 75 MG CAP.ER.24H PO SCH (09:20)
--- NOTE | 2017-10-27 10:29 | Psychiatry Progress Note ---
Date of Encounter: 10/27/17 Time of Encounter: 10:10 Subjective Interval history: Patient seen today ,case d/w staff as per treatment team remains isolative and sad , needs to be redirected for self care. I am ok , i did not sleep well , i am tired and i have to push myself to do things, i plan on taking shower today. i am very severely depress. effexor was increased yesterday , will add propanolol for anxiety . she is still dysphoric, hopeless and positive guilt. she denies suicidal thoughts, no psychosis. denies side effects aims o Review of Systems Psychiatric: Reports: depression, abnormal sleep pattern, suicidal ideation, anhedonia, panic attacks Results - Vital Signs Vital Signs: Temp Pulse Resp BP Pulse Ox 97.9 F 81 18 122/92 96 10/26/17 21:00 10/26/17 21:00 10/26/17 21:00 10/26/17 21:00 10/21/17 19:47 Assessment and Plan (1) Suicidal ideation Current visit: Yes Status: Acute Risks, benefits, side effects, alternatives discussed w/pt: Yes Patient agreeable to treatment: Yes (2) Major depressive disorder, recurrent severe without psychotic features Current visit: Yes Status: Acute Risks, benefits, side effects, alternatives discussed w/pt: Yes Patient agreeable to treatment: Yes Consult Discharge Plan - Plan Referrals: NONE,PCP [Primary Care Provider] - Psychiatry Exam - Constitutional Vitals: Temp Pulse Resp BP Pulse Ox 97.9 F 81 18 122/92 96 10/26/17 21:00 10/26/17 21:00 10/26/17 21:00 10/26/17 21:00 10/21/17 19:47 General appearance: age & developmentally appropriate - Musculoskeletal Gait: slow Station: other Strength & Tone: normal for patient - Psychiatric Patient Orientation: Yes Person, Yes Time, Yes Place Level of alertness: Alert Behavior: cooperative, withdrawn Psychomotor activity: Slowed Eye Contact: Minimal Contact Mood Description: Depressed, Anxious Affect description: constricted, dysphoric Speech Volume: Soft/Quiet Speech pattern: slowed Language & Vocabulary: consistent with education Thought Process: Intact Thought Content: Yes Guilt Perceptual Disturbances: No Auditory hallucinations, No Visual hallucinations Attention Span Ability: Unable to Sustain Attention Memory Description: Grossly Intact Patient Reliability: Reliable Historian Fund of knowledge: Yes abstraction ability, Yes aware of current events Intelligence Estimate: Average Judgment: Limited Insight: Partial
[2017-10-27] MEDS: Acetaminophen/Butalbital/CaffeineTABLET PO PRN ×2 (12:43→20:52)
[2017-10-27] MEDS: hydrOXYzine pamoate 25 MG CAPSULE PO PRN ×2 (17:18→20:57)
[2017-10-27] MEDS: ARIPiprazole 5 MG TABLET PO SCH (20:53)
[2017-10-27] MEDS: traZODone 50 MG TABLET PO PRN (20:57)
[2017-10-28] MEDS: Acetaminophen/Butalbital/CaffeineTABLET PO PRN ×2 (03:07→19:26)
[2017-10-28] MEDS: Venlafaxine XR (24 HR) 75 MG CAP.ER.24H PO SCH (08:38)
[2017-10-28] MEDS: Venlafaxine XR (24 HR) 150 MG CAP.ER.24H PO SCH (08:38)
--- NOTE | 2017-10-28 11:22 | Psychiatry Progress Note ---
Date of Encounter: 10/28/17 Time of Encounter: 11:03 Subjective Interval history: Patient seen today , case d/w treatment team and as per team she verbalized thoughts about having thoughts could have used belts and has several at home. Today she states i saw person being discharged and his belt was given to him and i had thought that i could have used belt , thoughts still come but does not want to hurt self. her son is now with his father and wants to go to that school and live with his father and that is bothering her , she states i will keep dwelling on it and therefore planning to start working again and has some support from her sister. denies side effects. Review of Systems Psychiatric: Reports: depression, abnormal sleep pattern, suicidal ideation, anhedonia, panic attacks Results - Vital Signs Vital Signs: Temp Pulse Resp BP Pulse Ox 97.4 F L 81 14 124/89 96 10/28/17 09:00 10/28/17 09:00 10/28/17 09:00 10/28/17 09:00 10/21/17 19:47 Assessment and Plan (1) Suicidal ideation Current visit: Yes Status: Acute Risks, benefits, side effects, alternatives discussed w/pt: Yes Patient agreeable to treatment: Yes (2) Major depressive disorder, recurrent severe without psychotic features Current visit: Yes Status: Acute Risks, benefits, side effects, alternatives discussed w/pt: Yes Patient agreeable to treatment: Yes Consult Discharge Plan - Plan Referrals: [facility] [Outside] Callie Doss DO [Resident] - 11/06/17 10:00 am (The above appointment is with Callie Doss for primary healthcare and medication management services.) Psychiatry Exam - Constitutional Vitals: Temp Pulse Resp BP Pulse Ox 97.4 F L 81 14 124/89 96 10/28/17 09:00 10/28/17 09:00 10/28/17 09:00 10/28/17 09:00 10/21/17 19:47 General appearance: age & developmentally appropriate, well-groomed, well- nourished - Musculoskeletal Gait: normal Station: relaxed Strength & Tone: normal for patient - Psychiatric Patient Orientation: Yes Person, Yes Time, Yes Place Level of alertness: Alert Behavior: cooperative, withdrawn Psychomotor activity: Slowed Eye Contact: Maintains Eye Contact Mood Description: Depressed, Anxious Affect description: congruent with mood Speech Volume: Soft/Quiet Speech pattern: slowed Language & Vocabulary: consistent with education Thought Process: Linear, Goal Oriented Thought Content: Yes Intact, Yes Guilt Perceptual Disturbances: No Auditory hallucinations, No Visual hallucinations Attention Span Ability: Capable of Focused Attention Memory Description: Grossly Intact Patient Reliability: Reliable Historian Fund of knowledge: Yes abstraction ability, Yes aware of current events Intelligence Estimate: Average Judgment: Limited Insight: Partial
[2017-10-28] MEDS: hydrOXYzine pamoate 25 MG CAPSULE PO PRN (19:26)
[2017-10-28] MEDS: ARIPiprazole 5 MG TABLET PO SCH (21:45)
[2017-10-28] MEDS: traZODone 50 MG TABLET PO PRN (21:46)
[2017-10-29] MEDS: Acetaminophen/Butalbital/CaffeineTABLET PO PRN (03:05)
[2017-10-29] MEDS: Venlafaxine XR (24 HR) 75 MG CAP.ER.24H PO SCH (08:14)
[2017-10-29] MEDS: Venlafaxine XR (24 HR) 150 MG CAP.ER.24H PO SCH (08:14)
--- NOTE | 2017-10-29 10:33 | Psychiatry Progress Note ---
Date of Encounter: 10/29/17 Time of Encounter: 10:11 Subjective Interval history: Patient seen today case d/w treatment team Patient states had headache last night woke up with it and was given medication for migrain and it improved. 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 denies si/hi. she states learning to do things for herself. denies side effects Review of Systems Psychiatric: Reports: depression, abnormal sleep pattern, suicidal ideation, anhedonia, panic attacks Results - Vital Signs Vital Signs: Temp Pulse Resp BP Pulse Ox 98.0 F 91 16 121/87 96 10/28/17 21:00 10/28/17 21:00 10/28/17 21:00 10/28/17 21:00 10/21/17 19:47 Assessment and Plan (1) Suicidal ideation Current visit: Yes Status: Acute Risks, benefits, side effects, alternatives discussed w/pt: Yes Patient agreeable to treatment: Yes (2) Major depressive disorder, recurrent severe without psychotic features Current visit: Yes Status: Acute Risks, benefits, side effects, alternatives discussed w/pt: Yes Patient agreeable to treatment: Yes Consult Discharge Plan - Plan Referrals: [facility] [Outside] Callie Doss DO [Resident] - 11/06/17 10:00 am (The above appointment is with Callie Doss for primary healthcare and medication management services.) Psychiatry Exam - Constitutional Vitals: Temp Pulse Resp BP Pulse Ox 98.0 F 91 16 121/87 96 10/28/17 21:00 10/28/17 21:00 10/28/17 21:00 10/28/17 21:00 10/21/17 19:47 General appearance: age & developmentally appropriate, well-groomed, well- nourished - Musculoskeletal Gait: slow Station: relaxed Strength & Tone: normal for patient - Psychiatric Patient Orientation: Yes Person, Yes Time, Yes Place Level of alertness: Alert Behavior: cooperative, withdrawn Psychomotor activity: Slowed Eye Contact: Maintains Eye Contact Mood Description: Depressed, Anxious Affect description: congruent with mood Speech Volume: Soft/Quiet Speech pattern: normal rate, normal rhythm, normal tone, fluent, spontaneous, slowed Language & Vocabulary: consistent with education Thought Process: Linear, Goal Oriented Thought Content: Yes Guilt Perceptual Disturbances: No Auditory hallucinations, No Visual hallucinations Attention Span Ability: Capable of Focused Attention Memory Description: Grossly Intact Patient Reliability: Reliable Historian Fund of knowledge: Yes average Intelligence Estimate: Average Judgment: Limited Insight: Partial
[2017-10-29] MEDS: hydrOXYzine pamoate 25 MG CAPSULE PO PRN (17:44)
[2017-10-29] MEDS: SUMAtriptan succinate 50 MG TABLET PO PRN (21:08)
[2017-10-29] MEDS: traZODone 50 MG TABLET PO PRN (21:08)
[2017-10-29] MEDS: ARIPiprazole 5 MG TABLET PO SCH (21:08)
[2017-10-30] MEDS: Acetaminophen/Butalbital/CaffeineTABLET PO PRN ×2 (09:00→18:48)
[2017-10-30] MEDS: Venlafaxine XR (24 HR) 150 MG CAP.ER.24H PO SCH (09:00)
[2017-10-30] MEDS: Venlafaxine XR (24 HR) 75 MG CAP.ER.24H PO SCH (09:00)
--- NOTE | 2017-10-30 11:36 | Psychiatry Progress Note ---
Date of Encounter: 10/30/17 Time of Encounter: 11:15 Subjective Interval history: Patient seen today case d/w treatment team. She has improved and showing improvement i her depression , psychomotor retardation, she is starting to use coping skills she learned. States my 13 year old lived with me , and now wants to be with his father and that is going to be change for her as she is trying to think positive and educated to work on short and intermediate frame tender goals. states i was home bound secondary to my anxiety and i feel medicine is helping e denies si/hi denies side effects [id number] Review of Systems Psychiatric: Reports: depression, abnormal sleep pattern, suicidal ideation, anhedonia, panic attacks Results - Vital Signs Vital Signs: Temp Pulse Resp BP Pulse Ox 98.1 F 79 14 125/83 96 10/30/17 09:00 10/30/17 09:00 10/30/17 09:00 10/30/17 09:00 10/21/17 19:47 Assessment and Plan (1) Suicidal ideation Current visit: Yes Status: Acute Plan: Continue hospitalization, Close observation, Suicide Precautions per unit protocol, Encourage participation in unit milieu, Group Therapy, Monitor sleep, Monitor appetite, Family/Supportive other meeting Risks, benefits, side effects, alternatives discussed w/pt: Yes Patient agreeable to treatment: Yes (2) Major depressive disorder, recurrent severe without psychotic features Current visit: Yes Status: Acute Plan: Continue hospitalization, Close observation, Suicide Precautions per unit protocol, Encourage participation in unit milieu, Group Therapy, Monitor sleep, Monitor appetite, Family/Supportive other meeting Risks, benefits, side effects, alternatives discussed w/pt: Yes Patient agreeable to treatment: Yes Consult Discharge Plan - Plan Referrals: [facility] [Outside] - 12/23/17 3:00 pm (The above appointment is with Marley Herron for outpatient psychiatric assessment and medication management services. Please arrive 30 minutes early to complete paperwork. Please bring your photo ID (bring proof of address if you do not have an ID) and medication list. The above appointment(s) reflects first availability. You may contact the office regularly to check for cancellations that may allow you to be seen sooner. ) Callie Doss DO [Resident] - 11/05/17 10:00 am (The above appointment is with Court Baumann for outpatient mental health counseling services. You will also see Callie Doss for primary healthcare and medication management services in the same office, the following day, on 11/06/2017 at 10:00am.) Psychiatry Exam - Constitutional Vitals: Temp Pulse Resp BP Pulse Ox 98.1 F 79 14 125/83 96 10/30/17 09:00 10/30/17 09:00 10/30/17 09:00 10/30/17 09:00 10/21/17 19:47 General appearance: age & developmentally appropriate, well-groomed, well- nourished - Musculoskeletal Gait: normal Station: relaxed Strength & Tone: normal for patient - Psychiatric Patient Orientation: Yes Person, Yes Time, Yes Place Level of alertness: Alert Behavior: cooperative Psychomotor activity: Normal Eye Contact: Maintains Eye Contact Mood Description: Depressed, Anxious Affect description: congruent with mood Speech Volume: Normal Speech pattern: normal rate, normal rhythm, normal tone, fluent, spontaneous Language & Vocabulary: consistent with education Thought Process: Linear, Goal Oriented Thought Content: No Suicidal ideation, No Homicidal ideation, No Overt delusions Perceptual Disturbances: No Auditory hallucinations, No Visual hallucinations Attention Span Ability: Capable of Focused Attention Memory Description: Grossly Intact Patient Reliability: Reliable Historian Fund of knowledge: Yes abstraction ability, Yes aware of current events Intelligence Estimate: Average Judgment: Limited Insight: Partial
[2017-10-30] MEDS: hydrOXYzine pamoate 25 MG CAPSULE PO PRN (18:49)
[2017-10-30] MEDS: ARIPiprazole 5 MG TABLET PO SCH (21:39)
[2017-10-30] MEDS: traZODone 50 MG TABLET PO PRN (21:39)
[2017-10-31] MEDS: Ondansetron ODT 4 MG TAB.RAPDIS SL PRN (05:04)
[2017-10-31] MEDS: Acetaminophen 325 MG TABLET PO PRN ×2 (08:01→20:43)
[2017-10-31] MEDS: Venlafaxine XR (24 HR) 75 MG CAP.ER.24H PO SCH (08:01)
[2017-10-31] MEDS: Venlafaxine XR (24 HR) 150 MG CAP.ER.24H PO SCH (08:02)
--- NOTE | 2017-10-31 11:55 | Psychiatry Progress Note ---
Date of Encounter: 10/31/17 Time of Encounter: 11:40 Subjective Interval history: Patient seen today , case d/w staff , patient slept well almost 6.5 hrs and showing improvement. she feels better and side effects denied. she has been not suicidal and denies psychosis. She is anxious and at times worried about her son , but deprssion has improved. She has some support and is compliant with treatment plan. start discharge planning. patient wants to follow her PCP for medication . Review of Systems Psychiatric: Reports: depression, abnormal sleep pattern, suicidal ideation, anhedonia, panic attacks Results - Vital Signs Vital Signs: Temp Pulse Resp BP Pulse Ox 97.8 F 76 16 107/78 96 10/31/17 08:40 10/31/17 08:40 10/31/17 08:40 10/31/17 08:40 10/21/17 19:47 Assessment and Plan (1) Suicidal ideation Current visit: Yes Status: Acute Plan: Continue hospitalization, Close observation, Suicide Precautions per unit protocol, Encourage participation in unit milieu, Group Therapy, Monitor sleep, Monitor appetite, Family/Supportive other meeting Risks, benefits, side effects, alternatives discussed w/pt: Yes Patient agreeable to treatment: Yes (2) Major depressive disorder, recurrent severe without psychotic features Current visit: Yes Status: Acute Plan: Continue hospitalization, Suicide Precautions per unit protocol, Encourage participation in unit milieu, Group Therapy, Monitor sleep, Monitor appetite, Family/Supportive other meeting Risks, benefits, side effects, alternatives discussed w/pt: Yes Patient agreeable to treatment: Yes Consult Discharge Plan - Plan Referrals: [facility] [Outside] - 12/23/17 3:00 pm (The above appointment is with Marley Herron for outpatient psychiatric assessment and medication management services. Please arrive 30 minutes early to complete paperwork. Please bring your photo ID (bring proof of address if you do not have an ID) and medication list. The above appointment(s) reflects first availability. You may contact the office regularly to check for cancellations that may allow you to be seen sooner. Also, you have been referred to case management services. Your new community case manager will contact you directly to schedule your first appointment. ) Callie Doss DO [Resident] - 11/05/17 10:00 am (The above appointment is with Court Baumann for outpatient mental health counseling services. You will also see Callie Doss for primary healthcare and medication management services in the same office, the following day, on 11/06/2017 at 10:00am.) Psychiatry Exam - Constitutional Vitals: Temp Pulse Resp BP Pulse Ox 97.8 F 76 16 107/78 96 10/31/17 08:40 10/31/17 08:40 10/31/17 08:40 10/31/17 08:40 10/21/17 19:47 General appearance: age & developmentally appropriate, well-groomed, well- nourished - Musculoskeletal Gait: normal Station: relaxed Strength & Tone: normal for patient - Psychiatric Patient Orientation: Yes Person, Yes Time, Yes Place Level of alertness: Alert Behavior: cooperative, anxious Psychomotor activity: Slowed Eye Contact: Maintains Eye Contact Mood Description: Anxious Affect description: congruent with mood, full range Speech Volume: Normal Speech pattern: normal rate, normal rhythm, normal tone, fluent, spontaneous Language & Vocabulary: consistent with education Thought Process: Linear, Goal Oriented Thought Content: No Suicidal ideation, No Homicidal ideation, No Overt delusions Perceptual Disturbances: No Auditory hallucinations, No Visual hallucinations Attention Span Ability: Capable of Focused Attention Memory Description: Grossly Intact Patient Reliability: Reliable Historian Fund of knowledge: Yes abstraction ability, Yes aware of current events Intelligence Estimate: Average Judgment: Fair Insight: Partial
[2017-10-31] MEDS: hydrOXYzine pamoate 25 MG CAPSULE PO PRN (20:42)
[2017-10-31] MEDS: traZODone 50 MG TABLET PO PRN (20:43)
[2017-10-31] MEDS: ARIPiprazole 5 MG TABLET PO SCH (20:43)
[2017-11-01] MEDS: Venlafaxine XR (24 HR) 75 MG CAP.ER.24H PO SCH (08:27)
[2017-11-01] MEDS: Venlafaxine XR (24 HR) 150 MG CAP.ER.24H PO SCH (08:27)
[2017-11-01 08:55] VITALS: BP 132/85
--- NOTE | 2017-11-01 11:46 | Discharge Summary ---
Date of Encounter: 11/01/17 Time of Encounter: 11:23 Diagnosis - Discharge Diagnosis (1) Major depressive disorder, recurrent severe without psychotic features Status: Acute Comments: patient inmproved significantly and learned coping skills and compliance. has support. (2) Suicidal ideation Status: Resolved Comments: patient not in danger to self/others at present. Medications - Discharge Medications Prescriptions: ARIPiprazole [Abilify] 5 mg PO HS #30 tablet Propranolol [Inderal] 10 mg PO HS #30 tablet Venlafaxine XR (24 HR) [Effexor Xr] 150 mg PO DAILY #30 cap.er.24h Venlafaxine XR (24 HR) [Effexor XR] 75 mg PO DAILY #30 cap.er.24h Chlorthalidone 25 mg PO DAILY 10/21/17 [History] Estradiol 2 mg PO DAILY 10/21/17 [History] Lisinopril [Zestril] 5 mg PO DAILY 10/21/17 [History] Ondansetron HCl [Zofran] 4 mg PO DAILY 10/21/17 [History] SUMAtriptan Succinate [Imitrex] 100 mg PO DAILY PRN 10/21/17 [History] ARIPiprazole [Abilify] 5 mg PO HS #30 tablet 11/01/17 [Rx] Propranolol [Inderal] 10 mg PO HS #30 tablet 11/01/17 [Rx] Venlafaxine XR (24 HR) [Effexor XR] 75 mg PO DAILY #30 cap.er.24h 11/01/17 [Rx] Venlafaxine XR (24 HR) [Effexor Xr] 150 mg PO DAILY #30 cap.er.24h 11/01/17 [Rx] 3 Allergy/AdvReac Type Severity Reaction Status Date / Time No Known Allergies Allergy Verified 10/28/16 22:38 Provider Date of admission: 10/21/17 16:15 Primary care physician: PCP NONE Psychiatry Exam - Constitutional Vitals: Temp Pulse Resp BP Pulse Ox 98.1 F 78 16 132/85 96 10/31/17 20:53 11/01/17 08:54 11/01/17 08:54 11/01/17 08:54 10/21/17 19:47 General appearance: age & developmentally appropriate, well-groomed, well- nourished - Musculoskeletal Gait: normal Station: relaxed Strength & Tone: normal for patient - Psychiatric Patient Orientation: Yes Person, Yes Time, Yes Place Level of alertness: Alert Behavior: calm, cooperative, anxious Psychomotor activity: Normal Eye Contact: Maintains Eye Contact Mood Description: Anxious Affect description: congruent with mood, full range Speech Volume: Normal Speech pattern: normal rate, normal rhythm, normal tone, fluent, spontaneous Language & Vocabulary: consistent with education Thought Process: Linear, Goal Oriented Thought Content: No Suicidal ideation, No Homicidal ideation, No Overt delusions Perceptual Disturbances: No Auditory hallucinations, No Visual hallucinations Attention Span Ability: Capable of Focused Attention Memory Description: Grossly Intact Patient Reliability: Reliable Historian Fund of knowledge: Yes abstraction ability, Yes aware of current events Intelligence Estimate: Average Judgment: Fair Insight: Full Hospital Course Hospital course: Ms. Anderson is a 47 year old female will be discharged today. ON ADMISSION Chief complaint: I had suicidal thinking and was sitting on my couch and I looked at the stairwell and no rope but I looked and saw some. I decided to come into the hospital. History of present illness: The patient had thoughts of wanting to kill herself. She normally thought of hanging herself but also looked at her son's night thinking that that might be. While the patient is spiritually and. Mary opposed to it she had been talking herself into dying by suicide this was started in the emotional pain. The episode of depression began in March when her mother she was holding her hand saw her mother gets slower. The mother had cancer. The patient was treated by her primary care physician and was placed on Zoloft and increasing doses of 250 mg per day. The patient had low self-esteem diminished interest recurrent ruminative guilt. With some guilt believes and self-deprecation. She had fears about her physical health low energy poor concentration diminished appetite with significant weight loss. The patient had decreased activity spent most of the time in her apartment with the shades drawn. She had suicidal ideation. She lived with her 13-year-old son. He reported that sometimes she would not go out for food and that was because she would get nervous store. The patient is plagued by guilt feelings this involves nervous breakdown 3 years ago. She given over the custody of her 2 granddaughters to their respective fathers. She had taken custody as her daughter had developed a drug problem. Patient did not deny thoughts of sinfulness poverty. During Course of her Hospitalization Patient had shown improvement in her suicidal thughts and plan , she showed improvement in her psychomotor retardation and anhedonia , guilt and hopelessness. I feel lot better, Riaz not the same person i came in , i want to start working and doing things for my self. medication changes were dond zoloft was dc and effexor xr started and increased to 225 mg / day , she was on 80 mg of propranolol, which was decreased to 10 mg hs and abilify 5 mg added, she showed significant improvement. ON DISCHARGE SHE IS anxious but denies any depressives/s , is hopeful and has short and half-way goals and education given about compliance. will be dc with follow up. Time spent discussing smoking cessation with patient: 3 to 10 minutes Does patient wish to continue nicotine replacement upon disc: No (patient is not a smoker.) - Time Spent with Patient Total time spent providing and/or coordinating discharge services: Greater than 30 minutes Assessment and Plan - Patient/Caregiver Discharge Instructions Activity: resume usual activities as tolerated Diet: regular diet - Follow up Plan Follow up with: [facility] [Outside] - 12/23/17 3:00 pm (The above appointment is with Marley Herron for outpatient psychiatric assessment and medication management services. Please arrive 30 minutes early to complete paperwork. Please bring your photo ID (bring proof of address if you do not have an ID) and medication list. The above appointment(s) reflects first availability. You may contact the office regularly to check for cancellations that may allow you to be seen sooner. Also, you have been referred to case management services. Your new family service caseworker will contact you directly to schedule your first appointment. ) Callie Doss DO [Resident] - 11/05/17 10:00 am (The above appointment is with Court Baumann for outpatient mental health counseling services. You will also see Callie Doss for primary healthcare and medication management services in the same office, the following day, on 11/06/2017 at 10:00am.) Functional capacity at discharge: independent ambulation Overall status at discharge: Stable Disposition: Home, Self-Care Quality - Multiple Antipsychotics Patient discharged on 2 or more antipsychotic medications: No
== END 2017-11-01 12:45 | disposition home or self-care (01) | DRG 751 ==
LOC: EMEROO 11:16 → SUATTDRO 16:15 → 1ANU 16:15
PROVIDERS: ADMIT Psychiatry & Neurology Forensic Psychiatry; ATTEND Psychiatry & Neurology Psychiatry